=== PATIENT | female | born 1990 | race Caucasian/White ===

== ENCOUNTER 2023-12-08 07:22 | Observation (INO) ==
[~2023-12-08 07:22] MED LIST: NS 0.45% 1000 ml BAG 1,000 ML IV SCH; Naloxone 0.4 mg VIAL 0.4 mg/ml 1 ml VIAL IV PRN; Ondansetron 4 mg VIAL 2 MG/ML 2 ml VIAL IV PRN
[2023-12-08] MEDS ORDERED: Lidocaine 2% PF 5 ML VIAL ONE (08:19)
[2023-12-08] MEDS ORDERED: Dexamethasone IV 4 MG/ML VIAL 1 ml VIAL ONE (08:19)
[2023-12-08] MEDS ORDERED: Propofol 10 MG/ML 20 ML BTL ONE (08:19)
[2023-12-08] MEDS ORDERED: Ondansetron 4 mg VIAL 2 MG/ML 2 ml VIAL ONE (08:19)
[2023-12-08] MEDS ORDERED: fentaNYL 100 mcg/2 ml 50 MCG/ML VIAL ONE ×3 (08:19→14:17)
[2023-12-08] MEDS ORDERED: Midazolam 5 mg/5 ml VIAL 1 mg/ml 5 ml VIAL (5 mg) ONE (08:19)
[2023-12-08] MEDS ORDERED: KETAMINE HCL 10 MG/ML 20 ml VIAL (200 MG) ONE (08:20)
[2023-12-08] MEDS ORDERED: Famotidine IV 10 MG/ML 2 ml VIAL (20 mg) ONE (08:27)
[2023-12-08 08:47] LABS: Rapid COVID-19 Molecular Undetected (Undetected)
[2023-12-08] MEDS: Famotidine IV 10 MG/ML 2 ml VIAL (20 mg) IV ONE (08:54)
[2023-12-08] MEDS ORDERED: Succinylcholine 200 mg VIAL 20 mg/ml 10 ml VIAL (200 mg) ONE (09:48)
[2023-12-08] MEDS ORDERED: Lidocaine 2% w/ EPI 1:200,000 MPF 20 ML SDV VIAL ONE (10:11)
[2023-12-08] MEDS ORDERED: Scopolamine 1 mg/72hr PATCH ONE (10:14)
[2023-12-08] MEDS: Scopolamine 1 mg/72hr PATCH TRANSDERM ONE (10:16)
[2023-12-08] MEDS ORDERED: HYDROmorphone 0.5 MG/0.5 ML SYRINGE ONE (13:41)
[2023-12-08] MEDS: fentaNYL 100 mcg/2 ml 50 MCG/ML VIAL IV PRN (14:18)
[2023-12-08] MEDS ORDERED: Senna TAB 8.6 mg TAB PO PRN (14:36)
[2023-12-08] MEDS ORDERED: Polyethylene Glycol 3350 17 GM PACKET PO PRN (14:36)
[2023-12-08] MEDS: Acetaminophen IV 1 GM/100ML 1,000 MG/100 ML BAG IV ONE (16:05)
[2023-12-08] MEDS: Buffered Lidocaine 1% SYRIN 1 ml INTRADERM ONE (16:05)
[2023-12-08] MEDS: Lactated Ringers 1000 ml BAG 1,000 ML IV SCH ×2 (16:06→19:03)
[2023-12-08] MEDS ORDERED: Calcium Citrate 200 mg TAB PO SCH (17:00)
[2023-12-08] MEDS: Calcium Carb (TUMS) 500 mg CHEW TAB PO SCH (17:57)
[2023-12-09] MEDS: Ondansetron 4 mg VIAL 2 MG/ML 2 ml VIAL IV PRN (03:26)
[2023-12-09 10:13] VITALS: BP 111/77
== END 2023-12-09 12:25 | disposition home or self-care (01) ==
LOC: OR 07:22 → SSU 07:22
PROVIDERS: ADMIT Internal Medicine; ATTEND Otolaryngology